=== PATIENT | male | born 1985 | race Caucasian/White ===

== ENCOUNTER 2018-04-26 09:04 | Day surgery (SDC) | payer BC ==
[2018-04-21 15:52] VITALS: BMI 32.5
[~2018-04-26 09:04] MED LIST: LACTATED RINGERS 1,000 ML IV SCH; LIDOCAINE 1% 20 ML VIAL (10MG/ML) FOR IV START INTRADERMA PRN
[2018-04-26 10:07] VITALS: RESP 16; TEMP 99
[2018-04-26] MEDS ORDERED: MIDAZOLAM 2 MG/2 ML VIAL ONE (10:24)
[2018-04-26] MEDS ORDERED: PROPOFOL 10 MG/ML 20 ML VIAL IV ONE (10:24)
[2018-04-26] MEDS ORDERED: fentaNYL (PF) 50 MCG/ML 2 ML AMP ONE (10:24)
--- NOTE | 2018-04-26 10:38 | P.PCN ---
Date of Procedure: 04/26/18 Procedure(s) Performed: BRIEF HISTORY: Patient is a 33-year-old pleasant white fmale, scheduled for an elective colonoscopy as a part of surveillance of long-standing history of Crohn 's colitis diagnosed in 2002. He is maintained on Imuran and remains in clinical remission. PROCEDURE PERFORMED: Colonoscopy with random biopsies PREOPERATIVE DIAGNOSIS: Long-standing history of Crohn's colitis. IV sedation per Anesthesia. PROCEDURE: After informed consent was obtained, the patient, was brought into the endoscopy unit. IV sedation was administered by Anesthesia under continuous monitoring. Digital rectal examination was normal. Initially the Olympus CF- 160 flexible video colonoscope was then inserted in the rectum, gradually advanced into the cecum without any difficulty. Careful examination was performed as the scope was gradually being withdrawn. Ileocecal valve and the appendiceal orifice were visualized and appeared normal. Prep was excellent. Mucosa of the cecum, ascending colon, transverse colon appeared normal. There are scattered pseudopolyps noted in the descending and sigmoid colon. Also there was early stricture noted in the descending colon close to the hepatic flexure but no active colitis seen. The rectum appeared normal. random biopsies were done from the cecum to rectum at every 10 cm intervals to rule out dysplasia Retroflexion was performed in the rectum and no lesions were seen. The patient tolerated the procedure well. IMPRESSION: Quiescent colitis Scattered pseudopolyps with an early colonic stricture at the splenic flexure but no active colitis RECOMMENDATIONS: Findings of this examination were discussed with the patient as well as his family. He was advised to follow with the biopsy results. If the biopsy does not have any evidence of dysplasia, he can have a repeat colonoscopy in 2 years.
[2018-04-26 10:42] VITALS: BP 108/64; PULSE 79
== END 2018-04-26 11:32 | disposition home or self-care (01) ==
LOC: ORWHC2ENDO 09:04
PROVIDERS: ATTEND Internal Medicine Gastroenterology
DX: Z12.11 Encounter for screening for malignant neoplasm of colon (principal); K50.112 Crohn's disease of large intestine with intestinal obstruction; Z79.899 Other long term (current) drug therapy
CPT/HCPCS: 88305; 45380; J2250; J3010; J2704

== ENCOUNTER 2020-06-11 10:39 | Day surgery (SDC) | payer BC ==
[2020-06-06 10:47] VITALS: BMI 33.5
[~2020-06-11 10:39] MED LIST changes: +LIDOCAINE 1% (10MG/ML) FOR IV START INTRADERMA PRN; -LIDOCAINE 1% 20 ML VIAL (10MG/ML) FOR IV START INTRADERMA PRN
[2020-06-11 10:57] VITALS: RESP 16; TEMP 98.5
[2020-06-11] MEDS ORDERED: PROPOFOL 10 MG/ML 20 ML VIAL IV ONE (11:54)
--- NOTE | 2020-06-11 12:07 | P.PCN ---
Date of Procedure: 06/11/20 Procedure(s) Performed: BRIEF HISTORY: Patient is a 35-year-old pleasant male scheduled for an elective colonoscopy as a part of evaluation of long-standing history of Crohn's colitis diagnosed in 2002. He is currently maintained on Imuran and Asacol. He is in clinical remission. His last colonoscopy was 2 years ago. PROCEDURE PERFORMED: Colonoscopy with random biopsies. PREOPERATIVE DIAGNOSIS: Long-standing history of Crohn's ileocolitis diagnosed in 1999. IV sedation per Anesthesia. PROCEDURE: After informed consent was obtained, the patient, was brought into the endoscopy unit. IV sedation was administered by Anesthesia under continuous monitoring. Digital rectal examination was normal. Initially the Olympus CF-160 flexible video colonoscope was then inserted in the rectum, gradually advanced into the cecum without any difficulty. Careful examination was performed as the scope was gradually being withdrawn. Ileocecal valve and the appendiceal orifice were visualized and appeared normal. Prep was excellent. Mucosa of the cecum, ascending colon, transverse colon, appeared normal. There were scattered pseudopolyps noted in the descending colon, sigmoid colon and multiple random biopsies were done from this area. Also there was an early descending colon stricture identified did not impede the passage of the scope. The rectum appeared normal. Retroflexion was performed in the rectum and no lesions were seen. The patient tolerated the procedure well. IMPRESSION: No active Crohn's colitis Scattered pseudopolyps in the sigmoid and descending colon and early stricture of the descending colon but no evidence of colorectal neoplasia RECOMMENDATIONS: Findings of this examination were discussed with the patient as well as his family. He was advised to follow with the biopsy results. If the biopsy shows no evidence of dysplasia, he can have a repeat colonoscopy in 2 years
[2020-06-11 12:37] VITALS: BP 119/79; PULSE 74
== END 2020-06-11 12:56 | disposition home or self-care (01) ==
LOC: ORWHC2ENDO 10:39
PROVIDERS: ATTEND Internal Medicine Gastroenterology
DX: K52.89 Other specified noninfective gastroenteritis and colitis (principal); K50.80 Crohn's disease of both small and large intestine without complications; K62.89 Other specified diseases of anus and rectum; Z79.899 Other long term (current) drug therapy; Z98.890 Other specified postprocedural states
CPT/HCPCS: 88305; 45380; J2704

== ENCOUNTER 2022-06-02 10:34 | Day surgery (SDC) | payer BC ==
[2022-06-01 09:15] VITALS: BMI 34.0
[~2022-06-02 10:34] MED LIST changes: -LIDOCAINE 1% (10MG/ML) FOR IV START INTRADERMA PRN
[2022-06-02 11:05] VITALS: TEMP 98.6
[2022-06-02] MEDS ORDERED: PROPOFOL 10 MG/ML 20 ML VIAL IV ONE (12:41)
--- NOTE | 2022-06-02 12:54 | P.PCN ---
Date of Procedure: 06/02/22 Procedure(s) Performed: BRIEF HISTORY: Patient is a 37-year-old pleasant white female scheduled for an elective colonoscopy as a part of surveillance of long-standing history of Crohn's colitis that was diagnosed in 2002. He is presently maintained on Asacol and Imuran and remains in clinical remission. PROCEDURE PERFORMED: Colonoscopy with random biopsy. PREOPERATIVE DIAGNOSIS: Long-standing history of colitis. IV sedation per Anesthesia. PROCEDURE: After informed consent was obtained, the patient, was brought into the endoscopy unit. IV sedation was administered by Anesthesia under continuous monitoring. Digital rectal examination was normal. Initially the Olympus CF-160 flexible video colonoscope was then inserted in the rectum, gradually advanced into the cecum without any difficulty. Careful examination was performed as the scope was gradually being withdrawn. Ileocecal valve and the appendiceal orifice were visualized and appeared normal. Prep was excellent. The ileum was intubated and 20 cm visualized and appeared normal. Mucosa of the cecum, ascending colon, transverse colon, appeared normal. In the descending colon at the 55 cm from the anal was there was an early stricture identified but no active colitis seen. There are scattered pseudopolyps noted in the descending colon, sigmoid colon, and multiple biopsies were done from this area. The rectum appeared normal. Random biopsies were done from the cecum to rectum at every 10 cm into well to rule out dysplasia Retroflexion was performed in the rectum and no lesions were seen. The patient tolerated the procedure well. IMPRESSION: Quiescent colitis Scattered pseudopolyps in the left colon Early stricture in the descending colon at 55 cm from the anal verge normal- appearing terminal ileum RECOMMENDATIONS: Findings of this examination were discussed with the patientas well as his family. He was advised to follow with the biopsy results. If the biopsy does not show any evidence of dysplasia he can have a repeat colonoscopy in 2 years. He will continue with current medications.].
[2022-06-02 13:01] VITALS: RESP 16
[2022-06-02 13:13] VITALS: BP 132/94; PULSE 74
== END 2022-06-02 13:29 ==
LOC: ORWHC2ENDO 10:34
PROVIDERS: ATTEND Internal Medicine Gastroenterology
DX: K50.10 Crohn's disease of large intestine without complications (principal); Z79.899 Other long term (current) drug therapy
CPT/HCPCS: 88305; 45380; J2704

== ENCOUNTER 2024-07-03 09:11 | Day surgery (SDC) | payer BC ==
[~2024-07-03 09:11] MED LIST changes: -LACTATED RINGERS 1,000 ML IV SCH; +LIDOCAINE 1% (10MG/ML) FOR IV START INTRADERMA PRN
[2024-07-03 09:54] VITALS: TEMP 97.4
[2024-07-03] MEDS: LACTATED RINGERS 1,000 ML IV SCH (10:01)
[2024-07-03] MEDS: IV FLUID CONTINUATION 1,000 ML IV ONE ×2 (10:02→10:34)
[2024-07-03] MEDS ORDERED: LIDOCAINE 1% INJ 10MG/ML (20 ML MDV) ONE (10:35)
[2024-07-03] MEDS ORDERED: PROPOFOL 10 MG/ML 20 ML VIAL IV ONE (10:35)
--- NOTE | 2024-07-03 10:52 | P.PCN ---
Date of Procedure: 07/03/24 Procedure(s) Performed: BRIEF HISTORY: Patient is a 39-year-old pleasant white male scheduled for an elective colonoscopy as a part of screening for longstanding history of Crohn's colitis diagnosed in 2002. He is maintained on Humira 100 mg daily and has been in clinical remission. Last colonoscopy was in May 2022 and had quiescent colitis. PROCEDURE PERFORMED: Colonoscopy with random biopsies. PREOPERATIVE DIAGNOSIS: Longstanding history of Crohn's colitis. IV sedation per Anesthesia. PROCEDURE: After informed consent was obtained, the patient, was brought into the endoscopy unit. IV sedation was administered by Anesthesia under continuous monitoring. Digital rectal examination was normal. Initially the Olympus CF-160 flexible video colonoscope was then inserted in the rectum, gradually advanced into the cecum without any difficulty. Careful examination was performed as the scope was gradually being withdrawn. Ileocecal valve and the appendiceal orifice were visualized and appeared normal. Prep was excellent. Mucosa of the cecum, ascending colon, transverse colon, appeared normal. Mucosa of the descending colon, sigmoid colon, had mild active colitis with mucosal erythema, friability and cobblestoning of the mucosa with an early descending colon stricture status post multiple biopsies. The rectum appeared normal. Random biopsies were done from rectum to cecum with every 10 cm intervals. Retroflexion was performed in the rectum and no lesions were seen. The patient tolerated the procedure well. IMPRESSION: Mild active colitis involving the descending colon and sigmoid colon extending from 30 to 60 cm from the anal verge with mild cobblestoning of the mucosa and friability status post multiple biopsies. Rectum and the rest of the colon appeared normal Scattered pseudopolyps in the left colon RECOMMENDATIONS: Findings of this examination were discussed with the patient as well as his family. He was advised to follow-up with his office in 3 weeks. Based on biopsy biopsy results will discuss about biologic agents as a part of treatment for Crohn's colitis.. Recommended repeat colonoscopy in 2 years if the biopsy does not show any evidence of dysplasia
[2024-07-03 10:55] VITALS: RESP 16
[2024-07-03 11:22] VITALS: BP 129/86; PULSE 82
== END 2024-07-03 11:37 ==
LOC: ORWHC2ENDO 09:11
PROVIDERS: ATTEND Internal Medicine Gastroenterology
DX: Z12.11 Encounter for screening for malignant neoplasm of colon (principal); K50.10 Crohn's disease of large intestine without complications; Z79.620 Long term (current) use of immunosuppressive biologic; Z79.899 Other long term (current) drug therapy
CPT/HCPCS: 45380; 88305; J2003; J2704

== ENCOUNTER → 2024-07-25 | Outpatient (CLI) | payer BC ==
[2024-07-25 10:32] LABS: HCT 43.5 % (39.6-50.0); HGB 15.5 g/dL (13.0-17.0); MCH 31.9 pg (27.0-32.0); MCHC 35.6 g/dL (32.0-37.0); MCV 89.5 FL (80.0-97.0); Mean Platelet Volume 9.3 FL (9.5-12.2); NRBC Per 100 WBC 0 X 10*3/uL (0.00-0.01); Platelet Count 344 X 10*3/uL (140-440); RBC 4.86 X 10*6/uL (4.40-5.60); RDW 12.2 % (11.5-14.5); WBC 6.33 X 10*3/uL (4.50-10.00)
[2024-07-25 15:49] LABS: Hepatitis B Surface Antigen Nonreactive (Nonreactive)
[2024-07-25 16:03] LABS: ALT 52 U/L (10-49); AST 35 U/L (14-35); Albumin 4.3 g/dL (3.8-4.9); Albumin/Globulin Ratio 1.39 Ratio (1.60-3.17); Alkaline Phosphatase 76 U/L (41-126); Blood Urea Nitrogen 9.3 mg/dL (9.0-27.0); Calcium 9.1 mg/dL (8.7-10.3); Carbon Dioxide 21.2 mmol/L (21.6-31.8); Chloride 106 mmol/L (96-109); Globulin 3.1 g/dL (1.6-3.3); Glucose 90 mg/dL (70-110); Potassium 4.4 mmol/L (3.5-5.5); Sodium 140 mmol/L (135-145); Total Bilirubin 0.5 mg/dL (0.3-1.2); Total Protein 7.4 g/dL (6.2-8.2)
== END | disposition home or self-care (01) ==
LOC: LABWHC1 08:27
PROVIDERS: ATTEND Internal Medicine Gastroenterology
DX: K50.90 Crohn's disease, unspecified, without complications (principal)
CPT/HCPCS: 36415; 80053; 85027; 86480; 86704; 87340